=== PATIENT | male | born 1965 | race Caucasian/White ===

== ENCOUNTER 2020-10-15 14:29 | Outpatient (REF) | payer BC, SELFPAY ==
--- NOTE | ~2020-10-15 | US_ITS ---
EXAMINATION: DOPPLER VENOUS ULTRASOUND EXTREMITY, LEFT CLINICAL INFORMATION: Left lower extremity pain. COMPARISON: None. TECHNIQUE: Walters-scale, Doppler and spectral analysis of the lower extremity was performed. FINDINGS: There is no evidence for a deep venous thrombosis within the visualized lower extremity veins. There is normal flow, compression and augmentation. ADDITIONAL FINDINGS: No Lake's cyst is identified. US/US venous duplex LE IMPRESSION: Unremarkable examination. Specifically, no evidence for DVT.
== END 2020-10-15 14:30 | disposition home or self-care (01) ==
LOC: HO.HMGCX 14:29
PROVIDERS: PCP Family Medicine; Visit Provider Psychiatry & Neurology Neurology
DX: M79.605 Pain in left leg (principal)
CPT/HCPCS: 93971